=== PATIENT | female | born 1955 ===

== ENCOUNTER 2022-07-28 16:58 | Emergency (ER) | payer OTHER ==
[~2022-07-28] VITALS: Ht 162.6 cm; Wt 150.0 kg
[2022-07-28] MEDS ORDERED: ONDANSETRON ODT 4 MG TAB PO ONE (23:00)
[2022-07-28] MEDS ORDERED: HYDROcodone-ACET 5/325MG TAB PO ONE (23:00)
[2022-07-29] MEDS ORDERED: ONDA-144 PO (00:24)
[2022-07-29] MEDS ORDERED: HYDR-4902 PO (00:24)
[2022-07-29 00:45] VITALS: BP 124/80
== END 2022-07-29 00:56 | disposition home or self-care (01) ==
LOC: ER 16:58 → EDBD 16:58 → ER 07-29 00:56
DX: S50.12XA Contusion of left forearm, initial encounter (principal); S50.11XA Contusion of right forearm, initial encounter; G89.11 Acute pain due to trauma; R07.89 Other chest pain; I10 Essential (primary) hypertension; Z79.899 Other long term (current) drug therapy; V89.2XXA Person injured in unspecified motor-vehicle accident, traffic, initial encounter; Y93.89 Activity, other specified; Y92.89 Other specified places as the place of occurrence of the external cause; Y99.8 Other external cause status
CPT/HCPCS: 70450; 71045; 71250; 72125; 73090; 74176; 93005; 99284; Q0162